=== PATIENT | female | born 1995 | race Caucasian/White ===

== ENCOUNTER 2022-11-18 00:58 | Emergency (ER) | payer SELFPAY ==
[~2022-11-18] VITALS: Ht 167.6 cm; Wt 108.8 kg
[2022-11-18 01:06] VITALS: BP 128/83
[2022-11-18] MEDS ORDERED: BUPIVAcaine 0.5% W/EPI /PF 10ml vial IJ STA (02:11)
[2022-11-18] MEDS ORDERED: LIDOcaine Viscous 15ml cup MM STA (02:11)
[2022-11-18] MEDS ORDERED: amox tr/potassium clavulanate 875/125mg TAB PO ONE (02:15)
[2022-11-18] MEDS ORDERED: AMOX-117 PO (03:16)
== END 2022-11-18 03:29 | disposition home or self-care (01) ==
LOC: ER 01:00
DX: K08.89 Other specified disorders of teeth and supporting structures (principal); Z79.899 Other long term (current) drug therapy
CPT/HCPCS: 64400; 99284; A6449